=== PATIENT | male | born 1960 | race Caucasian/White ===

== ENCOUNTER 2018-02-21 06:13 | Inpatient (IN) | payer BC ==
[~2018-02-21] VITALS: Ht 175.3 cm; Wt 101.2 kg
[2018-02-21] VITALS (10 sets, daily range): BP systolic 120–145; BP diastolic 72–91; PULSE 68–86; TEMP 36.6–36.9; O2SAT 94–96; Ht 175.3 cm; Wt 101.2 kg
[2018-02-21 06:46] LABS: BASO % 0.3 %; BASO ABS # 0.02 K/uL (0-0.2); EOS % 0.4 %; EOS ABS # 0.03 K/uL (0-0.5); HEMATOCRIT 45.5 % (42-52); HEMOGLOBIN 16.4 g/dL (14.0-18.0); IG# 0.03 K/uL (0.00-0.02); LYMPH % 19.9 %; LYMPH ABS # 1.48 K/uL (1.2-3.4); MEAN CELL VOLUME 84.7 fL (80-100); MEAN CORPUSCULAR HEMOGLOBIN 30.5 pg (25-34); MEAN PLATELET VOLUME 10.2 fL (7.4-10.4); MONO % 6.8 %; MONO ABS # 0.51 K/uL (0.11-0.59); NEUT % 72.2 %; NEUT ABS # 5.38 K/uL (1.4-6.5); PLATELET COUNT 229 K/uL (130-400); RED CELL DISTRIBUTION WIDTH CV 12.6 % (11.5-14.5); RED CELL DISTRIBUTION WIDTH SD 38.7 fL (36.4-46.3); WHITE BLOOD COUNT 7.45 K/uL (4.8-10.8)
[2018-02-21] MEDS ORDERED: LISI-461 PO (07:08)
[2018-02-21 07:18] LABS: ALBUMIN 3.8 gm/dl (3.4-5.0); CALCIUM 9.3 mg/dl (8.5-10.1); CKMB 55.1 ng/ml (0.5-3.6); CREATININE 1.16 mg/dl (0.60-1.40); POTASSIUM 3.6 mmol/L (3.5-5.1); TOTAL PROTEIN 7.9 gm/dl (6.4-8.2)
[2018-02-21] MEDS ORDERED: METOPROLOL TARTRATE 1 MG/ML VIAL IV STA (07:30)
[2018-02-21] MEDS ORDERED: ASPIRIN 81 MG CHEW PO STA (07:30)
[2018-02-21] MEDS ORDERED: NITROGLYCERIN 2% OINTMENT 30GM TUBE EXT ONE (07:30)
--- NOTE | 2018-02-21 07:31 | DIAGNOSTIC IMAGING REPORT ---
CHEST ONE VIEW PORTABLE CLINICAL HISTORY: Chest pain. COMPARISON STUDY: No previous studies for comparison. FINDINGS: Lung volumes are normal. No pneumothorax or pleural effusion is present. There is no consolidation or evidence for pulmonary edema. Cardiomediastinal silhouette is unremarkable. There is subsegmental left lower lung atelectasis. IMPRESSION: No acute cardiopulmonary findings. Electronically signed by: Alex Jones M.D. 02/21/2018 7:30 AM Dictated Date/Time: 02/21/2018 7:29 AM
[2018-02-21] MEDS ORDERED: HEPARIN 25000 UNIT/500 ML D5W ONE (08:22)
[2018-02-21] MEDS ORDERED: HEPARIN SOD (PORCINE) 1000 UNIT/ML 10 ML VIAL ONE ×2 (08:22→13:38)
[2018-02-21] MEDS ORDERED: HEPARIN IV BOLUS 4,500 UNIT in SYRINGE 0 ML IV ONE (08:30)
[2018-02-21] MEDS ORDERED: MoRPHine SULFATE 2 MG/ML CARP IV PRN (08:30)
[2018-02-21] MEDS ORDERED: ONDANSETRON INJ 2 MG/ML 2 ML VIAL IV PRN (08:30)
[2018-02-21] MEDS ORDERED: NITROGLYCERIN 0.4 MG SL PER TAB CHARGE SL PRN (08:30)
[2018-02-21] MEDS ORDERED: ACETAMINOPHEN 325 MG TAB PO PRN ×2 (08:30→15:15)
[2018-02-21] MEDS ORDERED: ATORVASTATIN 40 MG TAB PO ONE (08:31)
[2018-02-21 08:58] LABS: INR 0.9 (0.9-1.1)
[2018-02-21] MEDS ORDERED: HEPARIN 25,000 UNIT/500ML D5W 500 ML IV SCH (11:30)
[2018-02-21] MEDS: ATORVASTATIN 40 MG TAB PO SCH (11:30)
[2018-02-21] MEDS: ASPIRIN 81 MG ECTAB PO SCH (11:33)
--- NOTE | 2018-02-21 11:34 | Cardiology Consultation ---
Cardiology Consultation Date of Consultation: Feb 21, 2018. Requesting Physician: Dr. Beth Attending Physician: Dr. Yanes Reason for Consultation: NSTEMI Pt evaluation today including: conversation w/ patient, conversation w/ family , physical exam, chart review, lab review, review of studies, review of inpatient medication list, conversation w/ attending History of Present Illness Mr. Rae is a 57-year-old male with no know cardiac history but with cardiovascular risk factors including hypertension and elevated cholesterol ( currently diet controlled) who presented to the ED early this morning with complaints of chest discomfort which began yesterday afternoon. The patient reports that he lives in [place], but he is currently in the [facility] for his father's 90th birthday republican. He reports that yesterday, he and his were changing bird feeders around 1-2 pm, when he noted a dull ache in the center of his chest. The discomfort was non-radiating. He felt flushed and diaphoretic in association with the discomfort, but he did not experience any nausea, vomiting, or shortness of breath. The discomfort was a 3/ 10 in severity for about 15-20 minutes, and then it improved to a 1/10 on its own. He went about the rest of his day as usual, but the discomfort continued to wax and wane throughout the day. He did not feel as though it worsened with exertion, and he feels that it actually improved with walking around. The discomfort persistent throughout the night, but he was able to sleep for a few hours. When he woke up this morning, the pain was still present, therefore, he decided to proceed to the ED for further evaluation. ECG on arrival showed normal sinus rhythm, possible left atrial enlargement, and no acute ischemic changes. Troponin was elevated at 1.33. Given his chest pain and enzyme elevation, he has been admitted to the telemetry unit. The patient was seen in the ED prior to transferring to telemetry. He reports that his current pain level is a 1/10 in severity. He denies any shortness of breath, orthopnea, PND, or edema. He denies palpitations, lightheadedness, dizziness, syncope, or presyncope. He denies fevers, chills, cough, or wheezing. He denies abnormal bleeding such as melena, hematochezia, or hematuria. He denies cerebrovascular symptoms or claudication symptoms. He denies GI or symptoms. Review of systems: As noted in HPI. All other 10 point ROS are reviewed and otherwise negative at this time. Past Medical/Surgical History 1. Hypertension- on lisinopril 2. Elevated cholesterol- diet controlled Family History No family history of premature CAD. Father with history of CVA. Social History Smoking Status: Never Smoker History of Alcohol Use: Yes (3 to 4 glasses wine 2 times a week) He is and lives with his in [place]. He is originally from the [facility]. 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 He denies smoking or illicit drug use. He occasionally drinks red wine. Allergies Coded Allergies: No Known Allergies (Unverified , 02/21/18) Medications Current Inpatient Medications Medications (Trade) Dose Ordered Sig/Ana Route Start Time Stop Time Status Last Admin Dose Admin Heparin Sodium/ Dextrose 500 ml @ 20 mls/hr Q24H IV 02/21/18 08:15 03/23/18 08:14 UNV Acetaminophen (Tylenol Tab) 650 mg Q4H PRN PO 02/21/18 08:30 03/23/18 08:29 Ondansetron HCl (Zofran Inj) 4 mg Q6H PRN IV 02/21/18 08:30 03/23/18 08:29 Nitroglycerin (Nitrostat Tab) 0.4 mg UD PRN SL 02/21/18 08:30 03/23/18 08:29 Morphine Sulfate (MoRPHine SULFATE INJ) 2 mg Q30M PRN IV 02/21/18 08:30 03/07/18 08:29 Aspirin (Ecotrin Tab) 81 mg QAM PO 02/21/18 09:00 03/23/18 08:59 Atorvastatin Calcium (Lipitor Tab) 80 mg QAM PO 02/21/18 09:00 03/23/18 08:59 Physical Exam Vital Signs Past 12 Hours Date Time Temp Pulse Resp B/P (MAP) Pulse Ox O2 Delivery O2 Flow Rate FiO2 02/21/18 09:57 36.7 86 16 130/84 (99) 96 Room Air 02/21/18 09:12 65 16 112/78 97 Room Air 02/21/18 08:23 69 12 122/94 94 Room Air 02/21/18 08:00 94 Room Air 02/21/18 07:50 77 150/107 02/21/18 07:48 77 16 150/107 96 Room Air 02/21/18 06:37 96 Room Air 02/21/18 06:24 85 02/21/18 06:20 98 Room Air 02/21/18 06:20 36.7 83 13 153/99 98 Room Air Constitutional: Alert, oriented, in no acute distress HEENT: Head is atraumatic and normocephalic. EOMs intact. Sclera anicteric. Face is symmetric. No perioral cyanosis. Mucous membranes moist. Neck: Supple, no JVD, no carotid bruits Pulmonary: Normal respiratory effort, clear to auscultation bilaterally Cardiac: Regular rate and rhythm, normal S1 and S2, no gallops, no rubs, no murmurs Extremities: No clubbing, cyanosis, or edema. Pulses 2+ and symmetric Abdomen: Normal bowel sounds, soft, non-tender, no abdominal mass palpated Skin: Normal skin color, turgor, and pigmentation, no rash, no skin lesions Neurological: Oriented to person, place, and time Data Laboratory Results: Last 24 Hours Test 02/21/18 06:37 02/21/18 06:46 White Blood Count 7.45 K/uL Red Blood Count 5.37 M/uL Hemoglobin 16.4 g/dL Hematocrit 45.5 % Mean Corpuscular Volume 84.7 fL Mean Corpuscular Hemoglobin 30.5 pg Mean Corpuscular Hemoglobin Concent 36.0 g/dl Platelet Count 229 K/uL Mean Platelet Volume 10.2 fL Neutrophils (%) (Auto) 72.2 % Lymphocytes (%) (Auto) 19.9 % Monocytes (%) (Auto) 6.8 % Eosinophils (%) (Auto) 0.4 % Basophils (%) (Auto) 0.3 % Neutrophils # (Auto) 5.38 K/uL Lymphocytes # (Auto) 1.48 K/uL Monocytes # (Auto) 0.51 K/uL Eosinophils # (Auto) 0.03 K/uL Basophils # (Auto) 0.02 K/uL RDW Standard Deviation 38.7 fL RDW Coefficient of Variation 12.6 % Immature Granulocyte % (Auto) 0.4 % Immature Granulocyte # (Auto) 0.03 K/uL Prothrombin Time 9.7 SECONDS Prothromb Time International Ratio 0.9 Activated Partial Thromboplast Time 26.0 SECONDS Partial Thromboplastin Ratio 1.0 Sodium Level 135 mmol/L Potassium Level 3.6 mmol/L Chloride Level 101 mmol/L Carbon Dioxide Level 23 mmol/L Anion Gap 11.0 mmol/L Blood Urea Nitrogen 17 mg/dl Creatinine 1.16 mg/dl Est Creatinine Clear Calc Drug Dose 85.1 ml/min Estimated GFR () 81.1 Estimated GFR (Non- 70.0 BUN/Creatinine Ratio 14.6 Random Glucose 144 mg/dl Calcium Level 9.3 mg/dl Total Bilirubin 0.5 mg/dl Direct Bilirubin 0.1 mg/dl Aspartate Amino Transf (AST/SGOT) 38 U/L Alanine Aminotransferase (ALT/SGPT) 55 U/L Alkaline Phosphatase 69 U/L Total Creatine Kinase 385 U/L Creatine Kinase MB 55.1 ng/ml Creatine Kinase MB Ratio 14.3 Total Protein 7.9 gm/dl Albumin 3.8 gm/dl Lipase 109 U/L Bedside D-Dimer 142 ng/mlFEU Bedside Troponin I 1.330 ng/ml Imaging: No acute cardiopulmonary findings. EKG: Sinus rhythm at 88 bpm. Possible left atrial enlargement. No acute ST-T wave abnormality. Assessment & Plan Patient is a 57-year-old male with no known cardiac history but with a history of hypertension and dyslipidemia who presented to the ED this morning with complaints of chest pain which began yesterday afternoon. ECG shows sinus rhythm with no acute ischemic changes. His initial troponin was elevated at 1.330. The patient was discussed with Dr. Yanes, and given his symptoms and troponin elevation, it is recommended that he proceed with cardiac catheterization for further evaluation of his coronary anatomy. Will plan to take him to the laboratory this afternoon. He should remain NPO. Further recommendations to follow pending the results of the catheterization. DR. YANES ADDENDUM: PATIENT SEEN AND EXAMINED. AGREE WITH ASSESSMENT AND PLAN OUTLINED BY JENNIFER RODRIGUEZ. PATIENT WITH STUTTERING CHEST PAIN SINCE YESTERDAY AND MILD TROPONIN ELEVATION ON PRESENTATION. WILL PLAN TO PROCEED WITH CARDIAC CATHETERIZATION. DISCUSSED RISKS BENEFITS AND ALTERNATIVES OF PROCEDURE AND PATIENT WILLING TO PROCEED. FURTHER RECOMMENDATIONS PENDING FINDINGS OF PROCEDURE.
[2018-02-21] MEDS ORDERED: NiCARDipine HCL INJ 2.5 MG/ML 10 ML AMP ONE (13:38)
[2018-02-21] MEDS ORDERED: NITROGLYCERIN/D5W 100MCG/ML 20ML SYR ONE (13:38)
[2018-02-21] MEDS ORDERED: LIDOCAINE HCL 1% 20 ML VIAL ONE (13:38)
--- NOTE | 2018-02-21 13:38 | Pre Sedation Assessment ---
Pre Sedation Assessment General Date of Sedation: Feb 21, 2018. Vital Signs Past 12 Hours Date Time Temp Pulse Resp B/P (MAP) Pulse Ox O2 Delivery O2 Flow Rate FiO2 02/21/18 12:00 96 Room Air 02/21/18 12:00 96 Room Air 02/21/18 11:14 36.6 71 16 121/72 (88) 94 Room Air 02/21/18 09:57 36.7 86 16 130/84 (99) 96 Room Air 02/21/18 09:12 65 16 112/78 97 Room Air 02/21/18 08:23 69 12 122/94 94 Room Air 02/21/18 08:00 94 Room Air 02/21/18 07:50 77 150/107 02/21/18 07:48 77 16 150/107 96 Room Air 02/21/18 06:37 96 Room Air 02/21/18 06:24 85 02/21/18 06:20 98 Room Air 02/21/18 06:20 36.7 83 13 153/99 98 Room Air Review Cardiovascular: regular rate, rhythm, no edema Lungs: chest non-tender, lungs clear Pre-Sedation Airway Assessment Smoking Status: Never Smoker Hx of Sleep Apnea: No Hx of difficult intubation: No Short Thick Neck: No Thyro-mental Distance: > 3 Finger Breadths Oral Cavity: WNL Mallampati Classification: Class II ASA Classification: Class III Procedure Planning Contraindications for Sedation: None Current Medications Reviewed: Yes Notes The planned sedation has been discussed with the patient. Informed Consent was obtained. I have identified the patient, determined the appropriateness of sedation and have assessed the patient immediately prior to the procedure. All medicine(s) and interventions are by my order.
[2018-02-21] MEDS ORDERED: MIDAZOLAM HCL 1 MG/ML 2ML VIAL ONE (13:39)
[2018-02-21] MEDS ORDERED: FENTANYL CITRATE INJ 50 MCG/1 ML 2 ML VIAL ONE (13:39)
[2018-02-21] MEDS ORDERED: EPTIFIBATIDE 0.75 MG/ML 75MG VIAL IV ONE (14:25)
[2018-02-21] MEDS ORDERED: EPTIFIBATIDE 2 MG/ML 10 ML VIAL IV ONE (14:25)
--- NOTE | 2018-02-21 14:51 | ECHOCARDIOGRAM REPORT ---
*NOTICE TO RECEIVING CONSTITUTION PARTY AGENCY This information is strictly Confidential and protected under [place] law. [place] law prohibits you from making any further disclosure of this information unless further disclosure is expressly permitted by the written consent of the person to whom it pertains or is authorized by law. A general authorization for the release of medical or other information is not sufficient for this purpose. Hospital accepts no responsibility if the information is made available to any other person, INCLUDING THE PATIENT. Interpretation Summary * Name: KWAN LOVELL Study Date: 02/21/2018 08:56 AM BP: 122/94 mmHg * Patient Location: C.ED HR: 69 * : 1960 (M/d/yyyy) Gender: Male Height: 69 in * Age: 57 yrs Ethnicity: CA Weight: 232 lb * Ordering Physician: Antoni Beth * Referring Physician: Self, Referred * Performed By: Gunjan Mendez RDCS * * Reason For Study: AMI * BSA: 2.2 m2 * -- Conclusions -- * Left ventricular systolic function is normal. * Hypokinesis of the distal posterior wall. * Ejection Fraction = 50-55%. * Grade I diastolic dysfunction, (abnormal relaxation pattern). * There is mild mitral regurgitation. Procedure Details * A complete two-dimensional transthoracic echocardiogram was performed (2D, M-mode, Doppler and color flow Doppler). Left Ventricle * The left ventricle is normal in size. * There is normal left ventricular wall thickness. * Ejection Fraction = 50-55%. * Left ventricular systolic function is normal. * Hypokinesis of the distal posterior wall. Right Ventricle * The right ventricle is normal size. * The right ventricular systolic function is normal as assessed by tricuspid annular plane systolic excursion (TAPSE) (normal >1.5 cm). Atria * The left atrium is mildly dilated. * Right atrial size is normal. * No ASD detected; PFO is not assessed. Mitral Valve * The mitral valve is grossly normal. * There is no mitral valve stenosis. * There is mild mitral regurgitation. Tricuspid Valve * The tricuspid valve is not well visualized, but is grossly normal. * There is no tricuspid stenosis. * Significant tricuspid regurgitation is absent. Aortic Valve * The aortic valve is normal in structure and function. * No hemodynamically significant valvular aortic stenosis. * No aortic regurgitation is present. Pulmonic Valve * The pulmonary valve is not well seen, but the Doppler examination is normal without significant regurgitation or stenosis. Great Vessels * The aortic root is normal size. * The pulmonary is not well visualized. Pericardium/Pleural * There is no pericardial effusion. Great Vessels * Normal inferior vena cava size and collapsability with sniff indicates a normal right atrial pressure of 3 mmHg Left Ventricular Diastolic Function * Grade I diastolic dysfunction, (abnormal relaxation pattern). MMode 2D Measurements and Calculations IVSd 0.90 cm LVIDd 5.0 cm LVIDs 3.7 cm LVPWd 1.0 cm IVS/LVPW 0.90 FS 26.2 % EDV(Teich) 116.1 ml ESV(Teich) 56.7 ml EF(Teich) 51.1 % EDV(cubed) 122.0 ml ESV(cubed) 49.1 ml EF(cubed) 59.7 % LV mass(C)d 169.4 grams LV mass(C)dI 77.0 grams/m\S\2 SV(Teich) 59.3 ml SI(Teich) 27.0 ml/m\S\2 SV(cubed) 72.9 ml SI(cubed) 33.1 ml/m\S\2 Ao root diam 2.7 cm Ao root area 5.9 cm\S\2 ACS 2.2 cm LA dimension 3.5 cm asc Aorta Diam 3.2 cm LA/Ao 1.3 LVOT diam 2.1 cm LVOT area 3.3 cm\S\2 LVAd ap4 27.7 cm\S\2 LVLd ap4 8.7 cm EDV(MOD-sp4) 71.8 ml EDV(sp4-el) 75.0 ml LVAs ap4 18.0 cm\S\2 LVLs ap4 7.4 cm ESV(MOD-sp4) 36.0 ml ESV(sp4-el) 37.2 ml EF(MOD-sp4) 49.8 % EF(sp4-el) 50.4 % LVAd ap2 30.9 cm\S\2 LVLd ap2 8.9 cm EDV(MOD-sp2) 87.4 ml EDV(sp2-el) 90.9 ml LVAs ap2 21.2 cm\S\2 LVLs ap2 7.8 cm ESV(MOD-sp2) 47.3 ml ESV(sp2-el) 48.8 ml EF(MOD-sp2) 45.9 % EF(sp2-el) 46.3 % LVLd %diff 3.0 % EDV(MOD-bp) 80.0 ml LVLs %diff 5.2 % ESV(MOD-bp) 40.7 ml EF(MOD-bp) 49.1 % SV(MOD-sp4) 35.8 ml SI(MOD-sp4) 16.3 ml/m\S\2 SV(MOD-sp2) 40.1 ml SI(MOD-sp2) 18.2 ml/m\S\2 SV(MOD-bp) 39.2 ml SI(MOD-bp) 17.8 ml/m\S\2 SV(sp4-el) 37.8 ml SI(sp4-el) 17.2 ml/m\S\2 SV(sp2-el) 42.1 ml SI(sp2-el) 19.2 ml/m\S\2 Doppler Measurements and Calculations MV E max tere 53.4 cm/sec MV A max tere 59.7 cm/sec MV E/A 0.89 MV dec time 0.25 sec Ao V2 max 103.4 cm/sec Ao max PG 4.3 mmHg Ao max PG (full) 1.6 mmHg JUSTIN(V,A) 2.6 cm\S\2 JUSTIN(V,D) 2.6 cm\S\2 LV V1 max PG 2.7 mmHg LV V1 max 82.0 cm/sec PA V2 max 97.7 cm/sec PA max PG 3.8 mmHg PA acc slope 454.2 cm/sec\S\2 PA acc time 0.13 sec PA pr(Accel) 20.4 mmHg
--- NOTE | 2018-02-21 15:05 | Post Sedation Assessment ---
Post Sedation Assessment General Date of Sedation Feb 21, 2018. Vital Signs: Vital Signs Past 12 Hours Date Time Temp Pulse Resp B/P (MAP) Pulse Ox O2 Delivery O2 Flow Rate FiO2 02/21/18 12:00 96 Room Air 02/21/18 12:00 96 Room Air 02/21/18 11:14 36.6 71 16 121/72 (88) 94 Room Air 02/21/18 09:57 36.7 86 16 130/84 (99) 96 Room Air 02/21/18 09:12 65 16 112/78 97 Room Air 02/21/18 08:23 69 12 122/94 94 Room Air 02/21/18 08:00 94 Room Air 02/21/18 07:50 77 150/107 02/21/18 07:48 77 16 150/107 96 Room Air 02/21/18 06:37 96 Room Air 02/21/18 06:24 85 02/21/18 06:20 98 Room Air 02/21/18 06:20 36.7 83 13 153/99 98 Room Air Post Procedure Recovery Score Activity: (2) Moves 4 extremities * Respiration: (2) Deep breath/cough Circulation: (2) +/-20% PreAnes Value Consciousness: (2) Fully Awake Oxygen Saturation: (2) > 92% On Room Air Post Anesthesia Score: 10 Discharge Sedation Level of Care: Fast Track Phase II Post Sedation Plan On clinical assessment, the patient appears to have tolerated the sedation without complications. Patient is recovering as anticipated. Patient will continue to be monitored by nursing and may be discharged when sedation discharge criteria are met per below protocol. Upon Completions of procedure and additional 15 minutes continue every 5 minute vital signs and the P.A.R. score; then discharge to a Phase I or Fast Track to Phase II per the following guidelines: * Discharge Patient to appropriate Phase II area if PAR is 8 or greater or return to pre- procedure baseline. The post - procedure orders will be as directed. * If PAR score is less than 8 or not return to pre-procedure baseline then patient will follow Phase I monitoring till PAR is reached for Phase II. The Phase I may be done in procedure room or may call to secure a Phase I area. * If naloxone or flumazenil are used for reversal, hold in Phase I for an additional 60 -120 minutes before discharge to Phase II. Please call the Sedation Physician to re-evaluate and complete post-note for discharge to Phase II area. Do NOT discharge from procedure sedation or Phase 1 until post- sedation evaluation note is complete by procedure /sedation MD Sedation Discharge Instructions to be given to the patient at discharge to home.
[2018-02-21] MEDS ORDERED: EPTIFIBATIDE BOLUS / DRIP IV STA (15:08)
--- NOTE | 2018-02-21 15:08 | [facility] Post Operative Brief Note ---
Preliminary Procedure Note Procedure Date Feb 21, 2018. Pre-Procedure Diagnosis Non STEMI AUC Score 8 Post-Procedure Diagnosis Severe CAD Procedure(s) Performed Coronary Angiography, Left Heart Cath, Drug Eluting Stent, IVUS Channel Marketing Specialist Shad Drafter Chief Design(s) Bri Estimated Blood Loss 15 Preliminary Findings 99% proximal large OM2 stenosis Treated with PCI with 2 overlapping INNA Good angiographic result Recommendations PCI without planned CABG Specimens None Anesthesia Moderat Procedural Complication(s) None Disposition PCU
[2018-02-21] MEDS ORDERED: SODIUM CHLORIDE 0.9% 1000ML 1,000 ML IV SCH (15:15)
[2018-02-21] MEDS ORDERED: EPTIFIBATIDE INJ 75 MG PREMIXED IV SCH (15:30)
[2018-02-21] MEDS: TICAGRELOR 90 MG TAB PO ONE ×2 (15:30→16:23)
--- NOTE | 2018-02-21 15:33 | Cardiac Catheterization ---
Procedure Note Procedure Date Feb 21, 2018. Pre-Procedure Diagnosis Non STEMI AUC Score 8 Post-Procedure Diagnosis Severe CAD, Successful PCI Procedure(s) Performed Coronary Angiography, Left Heart Cath, Drug Eluting Stent, IVUS Stone Banker Shad Client Operations Manager(s) Bri Estimated Blood Loss 15 Medication(s) Fentanyl, Heparin, Integrilin, Nicardipine, Nitroglycerin, Versed, Lidocaine 1% Summary of Findings Indication: NSTEMI Access: 6 Korean right radial artery Catheters: Green; EBU 3.5 guide Findings: LM - 20-30% ostial stenosis LAD - calcified proximally with 20-30 percent diffuse proximal disease; mid to distal luminal regularities. Gives off 2 small diagonals with luminal regularities Circumflex - large vessel, 40-50 percent mid segment disease prior to OM1; large OM 2 with 99 percent mid segment stenosis RCA - dominant, large caliber vessel, 30 percent mid segment disease, distal luminal irregularities LVEDP - 13 -- PCI -- Antithrombotic therapy: Heparin, ticagrelor Procedure: Left main cannulated with EBU 3.5 guide Launch Manager 50 wire passed across lesion into distal vessel IVUS used to assess ostial left main--proximal circumflex without significant disease, short left main with mild noncalcified plaque, 20-30 percent at ostium with cross-sectional area greater than 14 cm2 OM 2 lesion predilated with 3.0 compliant balloon Post inflation patient had poor re-flow with new inferior ST elevations on monitor Treated with IV/IC integrilin and IC vasodilators Dilated lesion stented with 4.0 x 23 Xience drug-eluting stent Stent post-dilated with 4.5 noncompliant balloon Possible edge dissection at proximal edge of stent. Decision to place a 2nd stent overlapping with prior stent proximally (4.0 x 12 Xience) IC vasodilators administered for spasm Post procedure YENNY 3 flow, stent well expanded with minimal residual stenosis and no apparent cardiac complications. Arterial Closure: TR band Summary: 1. Severe single-vessel coronary artery disease - 99 percent stenosis in the large mid OM 2 2. 20-30 percent ostial left main stenosis by IVUS 3. Normal intracardiac filling pressure 4. Successful PCI of mid OM 2 with 2 overlapping drug-eluting stents (4.0 x 12, 4.0 x 23; post dilated to 4.5) Recommendations: To PCU for continued monitoring Loaded with ticagrelor 180 mg in lab intern Discontinue heparin infusion. Continue Integrilin for 4 more hours Continue dual-antiplatelet therapy for 1 year Titrate beta-lucy, JOSÉ MIGUEL-inhibitor. Continue statin,and ASCVD risk factor modification Consult cardiac Rehab Hemodynamics Rest Ao: 89/65/75 Final Ao: 103/65/82 LV: 96/13 Recommendations PCI without planned CABG Specimens None Radiation Exposure (mGy) 4888 Contrast (mls) 245 Fluids (cc crystalloids) 130 Drains None Anesthesia Moderate Procedural Complication(s) None Disposition PCU ACC Data Cardiac Status Clinical evaluation leading to the procedure CAD Presntation: Non STEMI Anginal Classification: CCS IV Heart Failure: No, NYHA Class: CCS I Cardiogenic Shock w/in 24Hrs: No Cardiac Arrest w/in 24Hrs: No Imaging studies past 6 months: Yes Stress studies past 6 months: No Closure Device Percutaneous Entry Location: Radial Closure Device: Radial Band PCI Indication: PCI for high risk Non-STEMI Lesion Segment Name: Mid OM2 Culprit Artery: Yes Stenosis Prior to Rx (%): 99 Chronic Total Occlusion: No IVUS: Yes FFR: No Pre-Procedure YENNY Flow: 2 Previously Treated Lesion: No Lesion Complexity: Non-High/Non-C Lesion Length (mm): 15 Thrombus Present: Yes Bifurcation Lesion: No Guidewire Across Lesion: Yes Guidewire: Stenosis Post-Procedure (%): 0 Post-Procedure YENNY Flow: 3 Device(s) Deployed: Yes Intraprocedure Events Significant Dissection: No Perforation: No
--- NOTE | 2018-02-21 15:37 | EMERGENCY ROOM VISIT NOTE ---
History Report prepared by Donaldo: Maureen Kaye Under the Supervision of: Dr. Kenneth Phillips M.D. First contact with patient: 06:33 Chief Complaint: CHEST PAIN Stated Complaint: CHEST PAIN COMES AND GOES,SLIGHT FEVER AT TIMES Nursing Triage Summary: PT drove from [place] a few days ago (16 hrs) has left sided chest pain, started yesterday. PT has no SOB, denies N/V, does have some diaphoresis. History of Present Illness The patient is a 57 year old male who presents to the Emergency Room with complaints of intermittent chest pain starting yesterday. He describes the pain as dull. He rates his discomfort as a 3-4/10 at worst. The pain lasts for "a while" and settles with time. The pain does not occur with deep breaths. He reports diaphoresis with the pain. He is having some abdominal discomfort. He has been eating normally. He denies any history of smoking. The patient recently drove 16 hours from [place]. He does have a history of hypertension and borderline high cholesterol. Pt denies LOC, headache, fevers, chills, visual changes, neck pain, tearing pain radiating to the back, personal history or family history of aneurysm or pulmonary embolism, breathing difficulties, leg swelling, coagulation abnormalities, recent surgery or immobilization, nausea, vomiting, melena, hematochezia, urinary symptoms, numbness, weakness, lymphadenopathy, rash, or other complaints. Source of History: patient Onset: yesterday Position: chest Symptom Intensity: 3-4/10 Quality: dull Timing: intermittent Associated Symptoms: + diaphoresis Note: Pt reports abdominal discomfort. Review of Systems See HPI for pertinent positives and negatives. A total of ten systems were reviewed and were otherwise negative. Past Medical & Surgical Medical Problems: (1) NSTEMI (non-ST elevated myocardial infarction) Family History No family history of heart problems. Social History Smoking Status: Never Smoker Marital Status: Housing Status: lives with family Occupation Status: employed Current/Historical Medications Scheduled Lisinopril (Zestril), 10 MG PO DAILY Allergies Coded Allergies: No Known Allergies (Unverified , 02/21/18) Physical Exam Vital Signs Date Time Temp Pulse Resp B/P (MAP) Pulse Ox O2 Delivery O2 Flow Rate FiO2 02/21/18 08:23 69 12 122/94 94 Room Air 02/21/18 08:00 94 Room Air 02/21/18 07:50 77 150/107 02/21/18 07:48 77 16 150/107 96 Room Air 02/21/18 06:37 96 Room Air 02/21/18 06:24 85 02/21/18 06:20 98 Room Air 02/21/18 06:20 36.7 83 13 153/99 98 Room Air Physical Exam GENERAL: Awake, alert, well-appearing, in no distress HENT: Normocephalic, atraumatic. Oropharynx unremarkable. EYES: Normal conjunctiva. Sclera non-icteric. NECK: Supple. No nuchal rigidity. FROM. No masses. RESPIRATORY: Clear to auscultation. No wheezes. No rales. Normal respiratory effort. CARDIAC: Normal rate. Normal rhythm. No murmurs. No rubs. Extremities warm and well perfused. Pulses equal. No JVD. GI: Soft, non-distended. No tenderness to palpation. No rebound or guarding. No masses. RECTAL: Deferred. MUSCULOSKELETAL: Atraumatic. Chest examination reveals no tenderness. The back is symmetrical on inspection without obvious abnormality. There is no CVA tenderness to palpation. No joint edema. LOWER EXTREMITIES: Calves are equal size bilaterally and non-tender. No edema. No discoloration. NEURO: Normal sensorium. No sensory or motor deficits noted. SKIN: No rash or jaundice noted. Medical Decision & Procedures ER Provider Diagnostic Interpretation: Radiology results as stated below per my review and radiologist interpretation: CHEST ONE VIEW PORTABLE CLINICAL HISTORY: Chest pain. COMPARISON STUDY: No previous studies for comparison. FINDINGS: Lung volumes are normal. No pneumothorax or pleural effusion is present. There is no consolidation or evidence for pulmonary edema. Cardiomediastinal silhouette is unremarkable. There is subsegmental left lower lung atelectasis. IMPRESSION: No acute cardiopulmonary findings. Electronically signed by: Alex Jones M.D. 02/21/2018 7:30 AM Dictated Date/Time: 02/21/2018 7:29 AM Laboratory Results 02/21/18 06:37 Red Blood Count 5.37, Mean Corpuscular Volume 84.7, Mean Corpuscular Hemoglobin 30.5, Mean Corpuscular Hemoglobin Concent 36.0, Mean Platelet Volume 10.2, Neutrophils (%) (Auto) 72.2, Lymphocytes (%) (Auto) 19.9, Monocytes (%) (Auto) 6.8, Eosinophils (%) (Auto) 0.4, Basophils (%) (Auto) 0.3, Neutrophils # (Auto) 5.38, Lymphocytes # (Auto) 1.48, Monocytes # (Auto) 0.51, Eosinophils # (Auto) 0.03, Basophils # (Auto) 0.02 02/21/18 06:37 Test 02/21/18 06:37 02/21/18 06:46 White Blood Count 7.45 K/uL (4.8-10.8) Red Blood Count 5.37 M/uL (4.7-6.1) Hemoglobin 16.4 g/dL (14.0-18.0) Hematocrit 45.5 % (42-52) Mean Corpuscular Volume 84.7 fL (80-100) Mean Corpuscular Hemoglobin 30.5 pg (25-34) Mean Corpuscular Hemoglobin Concent 36.0 g/dl (32-36) Platelet Count 229 K/uL (130-400) Mean Platelet Volume 10.2 fL (7.4-10.4) Neutrophils (%) (Auto) 72.2 % Lymphocytes (%) (Auto) 19.9 % Monocytes (%) (Auto) 6.8 % Eosinophils (%) (Auto) 0.4 % Basophils (%) (Auto) 0.3 % Neutrophils # (Auto) 5.38 K/uL (1.4-6.5) Lymphocytes # (Auto) 1.48 K/uL (1.2-3.4) Monocytes # (Auto) 0.51 K/uL (0.11-0.59) Eosinophils # (Auto) 0.03 K/uL (0-0.5) Basophils # (Auto) 0.02 K/uL (0-0.2) RDW Standard Deviation 38.7 fL (36.4-46.3) RDW Coefficient of Variation 12.6 % (11.5-14.5) Immature Granulocyte % (Auto) 0.4 % Immature Granulocyte # (Auto) 0.03 K/uL (0.00-0.02) Prothrombin Time 9.7 SECONDS (9.0-12.0) Prothromb Time International Ratio 0.9 (0.9-1.1) Anion Gap 11.0 mmol/L (3-11) Est Creatinine Clear Calc Drug Dose 85.1 ml/min Estimated GFR () 81.1 Estimated GFR (Non- 70.0 BUN/Creatinine Ratio 14.6 (10-20) Calcium Level 9.3 mg/dl (8.5-10.1) Total Bilirubin 0.5 mg/dl (0.2-1) Direct Bilirubin 0.1 mg/dl (0-0.2) Aspartate Amino Transf (AST/SGOT) 38 U/L (15-37) Alanine Aminotransferase (ALT/SGPT) 55 U/L (12-78) Alkaline Phosphatase 69 U/L (45-117) Total Creatine Kinase 385 U/L (39-308) Creatine Kinase MB 55.1 ng/ml (0.5-3.6) Creatine Kinase MB Ratio 14.3 (0-3.0) Total Protein 7.9 gm/dl (6.4-8.2) Albumin 3.8 gm/dl (3.4-5.0) Lipase 109 U/L (73-393) Bedside D-Dimer 142 ng/mlFEU (0-450) Bedside Troponin I 1.330 ng/ml (0-0.045) Laboratory results reviewed by me Medications Administered Medications (Trade) Dose Ordered Sig/Ana Route Start Time Stop Time Status Last Admin Dose Admin Nitroglycerin (Nitroglycerin 2% Oint) 0.5 inch NOW ONCE EXT 02/21/18 07:30 02/21/18 15:15 DC 02/21/18 07:50 0.5 INCH Aspirin (Aspirin Chew) 324 mg NOW STAT PO 02/21/18 07:30 02/21/18 07:32 DC 02/21/18 07:50 324 MG Metoprolol Tartrate (Lopressor Iv) 2.5 mg NOW STAT IV 02/21/18 07:30 02/21/18 07:32 DC 02/21/18 07:50 2.5 MG Heparin Sodium (Porcine) (Heparin Iv Bolus) 10,000 unit STK-MED ONCE .ROUTE 02/21/18 08:22 02/21/18 08:23 DC 02/21/18 08:27 4,000 UNIT Heparin Sodium/ Dextrose (Heparin 25,000 Unit/500ml D5W) 25,000 unit STK-MED ONCE .ROUTE 02/21/18 08:22 02/21/18 08:23 DC 02/21/18 08:28 25,000 UNIT ECG Per My Interpretation Indication: chest pain Rate (beats per minute): 88 Rhythm: normal sinus Findings: nonspecific-ST abn (Anterior), no ectopy, other (normal intervals) Comparison ECG Date: no prior available ED Course 0653: The patient was evaluated in room B10. A complete history and physical exam was performed. 0730: Lopressor Iv 2.5 mg IV, Heparin Sodium/Dextrose 500 ml @ 20 mls/hr IV, Aspirin 324 mg PO, Nitroglycerin 0.5 inch EXT. 0734: Upon reexamination, the patient was resting comfortably. I discussed the test results and treatment plan with him. The patient will be evaluated for further management. 0816: I discussed the patient's case with SURINDER Jones hospitalist. The patient will be evaluated for further treatment and disposition. 0850: Dr. Beth has contacted Dr. Kulkarni from interventional cardiology. Medical Decision Triage Nursing notes reviewed and agree them. Additional history obtained from the family. The patient's history was concerning for chest pain. Differential diagnosis: Etiologies such as cardiac ischemia, aortic dissection, pulmonary embolism, pneumonia, pneumothorax, musculoskeletal, infections, pericarditis, myocarditis , esophageal rupture, gastrointestinal, as well as others were entertained. Physical examination: As above. ER treatment provided: Nitropaste IV Lopressor IV heparin Oral aspirin On reassessment the patient felt better. Diagnostic interpretation by me: The electrocardiogram was somewhat concerning for anterior ST changes although no prior for comparison.. The labs revealed an unremarkable CBC and chemistry panel. The patient's cardiac markers are elevated concerning for non-ST elevation RI. Imaging studies: Chest x-ray as above Consultation: A consultation was placed with the hospitalist, Dr. Beth. The case was discussed and diagnostics were reviewed. The patient was evaluated in the ER for further treatment. He consulted with cardiology, Dr. Kulkarni. Medication Reconcilliation Current Medication List: was personally reviewed by me Blood Pressure Screening Patient's blood pressure: Elevated blood pressure Referred to hospitalist. Consults Time Called: [phone] Consulting Physician: SURINDER Jones hospitalist Returned Call: [phone] Discussed the patient's case. The patient will be evaluated for further treatment and disposition. Impression Primary Impression: NSTEMI (non-ST elevated myocardial infarction) Critical Care I have personally spent greater than 30 minutes of critical care time in the direct management of this patient. This includes bedside care, interpretation of diagnostic studies, and testing, discussion with consultants, patient, and family members, and other required patient management activities. This 30 minutes is in excess of all separately billable procedures. Scribe Attestation The scribe's documentation has been prepared under my direction and personally reviewed by me in its entirety. I confirm that the note above accurately reflects all work, treatment, procedures, and medical decision making performed by me. Departure Information Dispostion Being Evaluated By Hospitalist Referrals No Doctor, Assigned (PCP) Patient Instructions [facility]
[2018-02-21] MEDS ORDERED: NURSING VERBAL MED ORDER ONE (18:45)
[2018-02-21] MEDS ORDERED: Integrelin infusion --> STOP ORDER ONE (19:00)
[2018-02-21] MEDS: TICAGRELOR 90 MG TAB PO SCH (20:59)
[2018-02-21] MEDS: METOPROLOL TARTRATE 25 MG TAB PO SCH (21:00)
--- NOTE | 2018-02-21 22:24 | History and Physical ---
History & Physical Date & Time of Service: Feb 21, 2018 at 22:12 Chief Complaint: Nstemi Primary Care Physician: No Doctor, Assigned History of Present Illness Source: patient, family, hospital records 57 yo male with only medical history positive for hypertension, presented with chest pain that started the day prior to admission at 2pm. He was just resting when the pain occurred, never had experienced it prior. Denied every having exertional angina. The patient was a dull pressure, substernal, did not radiate. Also had some pain in epigastric region. Positive for diaphoresis, no nausea, no dyspnea. The pain went up and down the rest of the evening. He was able to sleep but this morning he still had the pressure so he came to the ED. Initial troponin was 1. He had nitro paste applied and pain resolved. EKG showed non-specific ST changes in anterior and lateral leads. CXR was normal, other lab work was normal. Asked to admit patient for NSTEMI based on chest pain and positive troponin. Limited risk factors for [place], he is male, middle aged but less than 65, has HTN, told to have borderline hyperlipidemia but never treated with Statin. Non- smoker, no family history of [place] or stroke, parents both alive in their 90's. He is slightly obese. Discussed with Dr. Kulkarni at the time of admission, recommended keeping him NPO and he would evaluate for catheterization. 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) Allergies Coded Allergies: No Known Allergies (Unverified , 02/21/18) Home Medications Scheduled Lisinopril (Zestril), 10 MG PO DAILY Review of Systems Constitutional: + sweats, No fever, No chills, No weight loss, No weakness, No fatigue, No problem reported Eyes: No worsening of vision, No eye pain, No redness, No discharge, No diplopia, No problem reported ENT: No hearing loss, No unusual epistaxis, No nasal symptoms, No sore throat, No tinnitus, No dental problems, No trouble swallowing, No problem reported Respiratory: No cough, No sputum, No wheezing, No shortness of breath, No dyspnea on exertion, No dyspnea at rest, No hemoptysis, No problem reported Cardiovascular: + chest pain, No orthopnea, No PND, No edema, No claudication, No palpitations, No problem reported Abdomen: + pain (epigastric), No nausea, No vomiting, No diarrhea, No constipation, No GI bleeding, No problem reported Musculoskeletal: No joint pain, No muscle pain, No swelling, No calf pain, No problem reported Genitourinary - Male: No hematuria, No dysuria, No urinary frequency, No urinary urgency Neurologic: No memory loss, No paralysis, No weakness, No numbness/tingling, No vertigo, No balance problems, No problem reported Endocrine: No fatigue, No excessive thirst, No excessive urination, No problem reported Hematologic / Lymphatic: No abnormal bleeding/bruising, No clotting problems, No swollen lymph nodes, No night sweats, No problem reported Integumentary: No rash, No itch, No new/changing skin lesions, No color change , No bleeding, No problem reported Allergic / Immunologic: No environmental allergies, No seasonal allergies, No pet sensitivities, No food allergies, No hives, No frequent infections, No poor healing, No prolonged convalescence, No problem reported Physical Exam Vital Signs Date Time Temp Pulse Resp B/P (MAP) Pulse Ox O2 Delivery O2 Flow Rate FiO2 02/21/18 20:00 Room Air 02/21/18 19:17 36.9 83 20 145/91 (109) 96 Room Air 02/21/18 16:30 81 16 124/78 (93) 96 02/21/18 16:00 96 Room Air 02/21/18 16:00 80 16 134/82 (99) 96 02/21/18 15:45 36.6 74 16 120/77 (91) 96 02/21/18 15:30 36.6 73 16 145/89 (107) 96 02/21/18 15:11 73 18 123/74 (90) 96 Room Air 02/21/18 14:56 72 16 115/77 (90) 99 Mask 3 02/21/18 12:00 96 Room Air 02/21/18 12:00 96 Room Air 02/21/18 11:14 36.6 71 16 121/72 (88) 94 Room Air 02/21/18 09:57 36.7 86 16 130/84 (99) 96 Room Air 02/21/18 09:12 65 16 112/78 97 Room Air 02/21/18 08:23 69 12 122/94 94 Room Air 02/21/18 08:00 94 Room Air 02/21/18 07:50 77 150/107 02/21/18 07:48 77 16 150/107 96 Room Air 02/21/18 06:37 96 Room Air 02/21/18 06:24 85 02/21/18 06:20 98 Room Air 02/21/18 06:20 36.7 83 13 153/99 98 Room Air General Appearance: WD/WN, no apparent distress Head: normocephalic, atraumatic Eyes: normal inspection, EOMI, sclerae normal ENT: normal ENT inspection, hearing grossly normal, pharynx normal Neck: supple, no adenopathy, no JVD, trachea midline Respiratory/Chest: chest non-tender, lungs clear, normal breath sounds, no respiratory distress, no accessory muscle use Cardiovascular: regular rate, rhythm, no edema, no gallop, no JVD, no murmur, normal peripheral pulses Abdomen/GI: normal bowel sounds, non tender, soft, no organomegaly Back: normal inspection, no CVA tenderness, no muscle spasm, normal range of motion Extremities/Musculoskelatal: normal inspection, no calf tenderness, normal capillary refill, no pedal edema, normal range of motion, non-tender, pelvis stable Neurologic/Psych: windscreen fitter II-XII nml as tested, no motor/sensory deficits, alert, normal mood/affect, normal reflexes, oriented x 3 Skin: normal color, warm/dry, no rash Diagnostics Laboratory Results Results Past 24 Hours Test 02/21/18 06:37 02/21/18 06:46 02/21/18 12:41 02/21/18 19:40 Range/Units White Blood Count 7.45 4.8-10.8 K/uL Red Blood Count 5.37 4.7-6.1 M/uL Hemoglobin 16.4 14.0-18.0 g/dL Hematocrit 45.5 42-52 % Mean Corpuscular Volume 84.7 80-100 fL Mean Corpuscular Hemoglobin 30.5 25-34 pg Mean Corpuscular Hemoglobin Concent 36.0 32-36 g/dl Platelet Count 229 130-400 K/uL Mean Platelet Volume 10.2 7.4-10.4 fL Neutrophils (%) (Auto) 72.2 % Lymphocytes (%) (Auto) 19.9 % Monocytes (%) (Auto) 6.8 % Eosinophils (%) (Auto) 0.4 % Basophils (%) (Auto) 0.3 % Neutrophils # (Auto) 5.38 1.4-6.5 K/uL Lymphocytes # (Auto) 1.48 1.2-3.4 K/uL Monocytes # (Auto) 0.51 0.11-0.59 K/uL Eosinophils # (Auto) 0.03 0-0.5 K/uL Basophils # (Auto) 0.02 0-0.2 K/uL RDW Standard Deviation 38.7 36.4-46.3 fL RDW Coefficient of Variation 12.6 11.5-14.5 % Immature Granulocyte % (Auto) 0.4 % Immature Granulocyte # (Auto) 0.03 0.00-0.02 K/uL Prothrombin Time 9.7 9.0-12.0 SECONDS Prothromb Time International Ratio 0.9 0.9-1.1 Activated Partial Thromboplast Time 26.0 21.0-31.0 SECONDS Partial Thromboplastin Ratio 1.0 Sodium Level 135 136-145 mmol/L Potassium Level 3.6 3.5-5.1 mmol/L Chloride Level 101 98-107 mmol/L Carbon Dioxide Level 23 21-32 mmol/L Anion Gap 11.0 3-11 mmol/L Blood Urea Nitrogen 17 7-18 mg/dl Creatinine 1.16 0.60-1.40 mg/dl Est Creatinine Clear Calc Drug Dose 85.1 ml/min Estimated GFR () 81.1 Estimated GFR (Non- 70.0 BUN/Creatinine Ratio 14.6 10-20 Random Glucose 144 70-99 mg/dl Calcium Level 9.3 8.5-10.1 mg/dl Total Bilirubin 0.5 0.2-1 mg/dl Direct Bilirubin 0.1 0-0.2 mg/dl Aspartate Amino Transf (AST/SGOT) 38 15-37 U/L Alanine Aminotransferase (ALT/SGPT) 55 12-78 U/L Alkaline Phosphatase 69 45-117 U/L Total Creatine Kinase 385 39-308 U/L Creatine Kinase MB 55.1 0.5-3.6 ng/ml Creatine Kinase MB Ratio 14.3 0-3.0 Total Protein 7.9 6.4-8.2 gm/dl Albumin 3.8 3.4-5.0 gm/dl Lipase 109 73-393 U/L Bedside D-Dimer 142 0-450 ng/mlFEU Bedside Troponin I 1.330 0-0.045 ng/ml Troponin I 6.650 25.600 0-0.045 ng/ml CXR normal EKG sinus rhythm with ST depressions in anterior lateral leads Impression Assessment and Plan 57 yo male with chest pressure and diaphoresis at rest, lasted several hours the day prior to admission - NSTEMI: based off of symptoms of chest pressure, positive troponin of [address] depressions in lateral, anterior leads admit to tele, cycle troponin q 6 consult interventional cardiology for evaluation for catheterization echo with EF 50-55%, Hypokinesis of the distal posterior wall. Dr. Kulkarni took to the laborer stores, found to have 99% proximal large OM2 stenosis Treated with PCI with 2 overlapping INNA recommend dual antiplatelet therapy with aspirin and Brilinta Lipitor 80mg started continue lisinopril, will add lopressor 12.5mg BID, follow HR and BP troponin trended up to 25 revisited patient after heart cath, no chest pain or pressure, eating well discussed with Dr. Kulkarni, can likely be d/c to home tomorrow Advanced Directives Existing Living Will: No Existing Power of Computational Scientist: No Resuscitation Status VTE Prophylaxis Will order VTE Prophylaxis: Yes
[2018-02-22 03:35] VITALS: BP 131/83; PULSE 84; TEMP 36.6; O2SAT 96
[2018-02-22 06:18] LABS: BASO % 0.1 %; BASO ABS # 0.01 K/uL (0-0.2); EOS % 0.4 %; EOS ABS # 0.04 K/uL (0-0.5); HEMATOCRIT 43.1 % (42-52); HEMOGLOBIN 15.7 g/dL (14.0-18.0); IG# 0.02 K/uL (0.00-0.02); LYMPH % 16.6 %; LYMPH ABS # 1.52 K/uL (1.2-3.4); MEAN CELL VOLUME 83.9 fL (80-100); MEAN CORPUSCULAR HEMOGLOBIN 30.5 pg (25-34); MEAN CORPUSCULAR HGB CONC 36.4 g/dl (32-36); MEAN PLATELET VOLUME 9.9 fL (7.4-10.4); MONO % 7.6 %; MONO ABS # 0.69 K/uL (0.11-0.59); NEUT % 75.1 %; NEUT ABS # 6.85 K/uL (1.4-6.5); PLATELET COUNT 209 K/uL (130-400); RED CELL DISTRIBUTION WIDTH CV 12.8 % (11.5-14.5); RED CELL DISTRIBUTION WIDTH SD 38.7 fL (36.4-46.3); WHITE BLOOD COUNT 9.13 K/uL (4.8-10.8)
[2018-02-22 06:52] LABS: CALCIUM 8.8 mg/dl (8.5-10.1); CREATININE 0.96 mg/dl (0.60-1.40); POTASSIUM 3.8 mmol/L (3.5-5.1)
[2018-02-22 07:10] VITALS: BP 126/81; PULSE 92; TEMP 36.8; O2SAT 95
[2018-02-22] MEDS ORDERED: LPT40 PO (08:03)
[2018-02-22] MEDS ORDERED: NTRSLP4 SL (08:03)
[2018-02-22] MEDS ORDERED: BRL90 PO (08:03)
[2018-02-22] MEDS ORDERED: ASPI-320 PO (08:03)
[2018-02-22] MEDS ORDERED: LPR25 PO (08:03)
--- NOTE | 2018-02-22 08:12 | Discharge Instructions ---
Discharge Instructions Date of Service Feb 22, 2018. Admission Reason for Admission: Nstemi Discharge Discharge Diagnosis / Problem: NSTEMI (acute heart attack) Discharge Goals Goal(s): Decrease discomfort, Improve disease control Activity Recommendations Activity Limitations: per Instructions/Follow-up section Lifting Limitations: none Exercise/Sports Limitations: gradually increase as tolerated May Resume Sexual Activity: after two weeks Shower/Bathe: no limitations Driving or Machine Use: no limitations . Instructions / Follow-Up Instructions / Follow-Up Medications: - BRILINTA: antiplatelet medication, take twice a day, this is essential medication to keep stent open, DO NOT STOP TAKING - ASPIRIN: antiplatelet medications, once a day, also essential to keep stent open - LIPITOR: statin medication, lowers bad cholesterol but also stabilizes plaques , proven to reduce risk of a future heart attack or stroke - METOPROLOL: 12.5mg twice a day - NITRO: sublingual tablets, take as needed for chest pain, pressure, can repeat every 15 minutes but no more than three doses NSTEMI: heart attack chest pain, elevated troponin and EKG changes heart catheterization showed 99% lesion in obtuse marginal branch treated with two drug eluting stents as above, will treat medically with aspirin, Brilinta, Lipitor, metoprolol and lisinopril Brilinta can be expensive, if too costly, I have provided you with script for Plavix which is 75mg daily, provides same protection with stent Mild systolic dysfunction of heart, ischemic cardiomyopathy ejection fraction was low normal at 55% certainly due to acute heart attack, with above medications heart function will likely improve (normal is 60-65%) take lisinopril, metoprolol follow heart healthy diet (low fat, low cholesterol, low sodium) FOLLOW UP - cardiology in 2-3 weeks, Dr. Kulkarni office is [phone] Current Hospital Diet Patient's current hospital diet: AHA Diet (Heart Healthy) Discharge Diet Recommended Diet: AHA Diet (Heart Healthy) Procedures Procedures Performed: Left heart catheterization, 99% occlusion of obtuse marginal branch, treated with two drug eluting stents Pending Studies Studies pending at discharge: no Medical Emergencies . Who to Call and When: Medical Emergencies: If at any time you feel your situation is an emergency, please call 911 immediately. . Non-Emergent Contact Non-Emergency issues call your: Drying Machine Back Tender Call Non-Emergent contact if: you have any medication questions . . "Provider Documentation" section prepared by Antoni Beth. . [place] Drug Monitoring Program Search Results: no issues identified
[2018-02-22 08:33] LABS: PTT PATIENT 25.9 SECONDS (21.0-31.0)
[2018-02-22] MEDS: METOPROLOL TARTRATE 25 MG TAB PO SCH (09:09)
[2018-02-22] MEDS: ATORVASTATIN 40 MG TAB PO SCH (09:09)
[2018-02-22] MEDS: TICAGRELOR 90 MG TAB PO SCH (09:10)
[2018-02-22] MEDS: ASPIRIN 81 MG ECTAB PO SCH (09:10)
[2018-02-22 09:38] VITALS: BP 126/81; PULSE 92; TEMP 36.8; O2SAT 95
--- NOTE | 2018-02-22 12:02 | Discharge Summary ---
Discharge Summary Date of Service Feb 22, 2018. Discharge Summary Admission Date: Feb 21, 2018 at 08:29 Discharge Date: Feb 22, 2018 Discharge Disposition: Home Principal Diagnosis: NSTEMI Problems/Secondary Diagnoses: Systolic dysfunction without heart failure HTN Dyslipidemia Procedures: Left heart catheterization, two INNA placed in OM Consultations: Cardiology Medication Reconciliation New Medications: Aspirin (Aspirin EC Low Dose) 81 Mg Ectab 81 MG PO QAM, #30 TABS 3 Refills Atorvastatin (Lipitor) 40 Mg Tab 80 MG PO QAM, #60 TAB 3 Refills Metoprolol Tartrate (Lopressor) 25 Mg Tab 12.5 MG PO Q12, #30 TAB 3 Refills Nitroglycerin (Nitrostat) 0.4 Mg/1 Tab Subl 0.4 MG SL UD PRN for Chest Pain, #60 TABS 3 Refills Ticagrelor (Brilinta) 90 Mg Tab 90 MG PO BID, #60 TAB 3 Refills Continued Medications: Lisinopril (Zestril) 10 Mg Tab 10 MG PO DAILY, TAB Discharge Exam Patient feeling great, no chest pain or pressure, ambulating in halls without any pain. Eating well, breathing comfortably. Spent 20 minutes going over discharge plan with patient and his . Explained all medications and the importance of taking them. Discussed recurrent chest pain and importance of returning to an ED. Discussed importance of follow up with Dr. Kulkarni, patient has a home here, going to be moving back here permanently. Review of Systems: Constitutional: No fever, No chills, No sweats, No weight loss, No weakness , No fatigue, No problem reported Eyes: No worsening of vision, No eye pain, No redness, No discharge, No diplopia, No problem reported ENT: No hearing loss, No unusual epistaxis, No nasal symptoms, No sore throat, No tinnitus, No dental problems, No trouble swallowing, No problem reported Respiratory: No cough, No sputum, No wheezing, No shortness of breath, No dyspnea on exertion, No dyspnea at rest, No hemoptysis, No problem reported Cardiovascular: No chest pain, No orthopnea, No PND, No edema, No claudication, No palpitations, No problem reported Abdomen: No pain, No nausea, No vomiting, No diarrhea, No constipation, No GI bleeding, No problem reported Musculoskeletal: No joint pain, No muscle pain, No swelling, No calf pain, No problem reported Genitourinary - Male: No hematuria, No dysuria, No urinary frequency, No urinary urgency Neurologic: No memory loss, No paralysis, No weakness, No numbness/tingling , No vertigo, No balance problems, No problem reported Psychiatric: No depression symptoms, No anhedonism, No anxiety, No insomnia , No substance abuse, No problem reported Endocrine: No fatigue, No excessive thirst, No excessive urination, No problem reported Hematologic / Lymphatic: No abnormal bleeding/bruising, No clotting problems , No swollen lymph nodes, No night sweats, No problem reported Integumentary: No rash, No itch, No new/changing skin lesions, No color change, No bleeding, No problem reported Physical Exam: General Appearance: WD/WN, no apparent distress Eyes: normal inspection, EOMI, sclerae normal ENT: normal ENT inspection, hearing grossly normal, pharynx normal Neck: supple, no adenopathy, no JVD, trachea midline Respiratory/Chest: chest non-tender, lungs clear, normal breath sounds, no respiratory distress, no accessory muscle use Cardiovascular: regular rate, rhythm, no edema, no gallop, no JVD, no murmur , normal peripheral pulses Abdomen / GI: normal bowel sounds, non tender, soft, no organomegaly Extremities: normal inspection, no calf tenderness, normal capillary refill , no pedal edema, normal range of motion, pelvis stable 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 Kulkarni - Systolic dysfunction without heart failure EF slightly low at 50-55% on lisinopril and metoprolol will follow up with cardiology, likely repeat echo in next few weeks to months - Dyslipidemia: started on Lipitor 80mg daily warned of adverse effects of myalgia - HTN: continue Lisinopril 10mg, added Lopressor 12.5mg BID Total Time Spent: Greater than 30 minutes This includes examination of the patient, discharge planning, medication reconciliation, and communication with other providers. Discharge Instructions Please refer to the electronic Patient Visit Report (Discharge Instructions) for additional information. Follow-Up Dr. Kulkarni in 2-3 weeks, he will call the office Additional Copies To Eliceo Kulkarni MD
== END 2018-02-22 10:03 | disposition home or self-care (01) | DRG 247 ==
LOC: C.EDB 06:15 → C.2T 08:29 → ENRESERV 08:45
PROVIDERS: ADMIT Internal Medicine; ATTEND Internal Medicine
PROC: 4A023N7 Measurement of Cardiac Sampling and Pressure, Left Heart, Percutaneous Approach (ICD-10-PCS; principal; 2018-02-21 13:45)
PROC: 027034Z Dilation of Coronary Artery, One Artery with Drug-eluting Intraluminal Device, Percutaneous Approach (ICD-10-PCS; principal; 2018-02-21 13:45)
PROC: B210YZZ Fluoroscopy of Single Coronary Artery using Other Contrast (ICD-10-PCS; principal; 2018-02-21 13:45)
DX: I21.4 Non-ST elevation (NSTEMI) myocardial infarction (principal); I10 Essential (primary) hypertension; E78.00 Pure hypercholesterolemia, unspecified; E78.5 Hyperlipidemia, unspecified